=== PATIENT | female | born 1970 | race Caucasian/White ===

== ENCOUNTER 2023-03-10 05:44 | Observation (INO) | payer BC ==
[2023-03-03 16:30] LABS: ALBUMIN 3.6 G/DL (3.4-5.0); ALBUMIN/GLOBULIN RATIO 0.8 (1.1-1.5); ALKALINE PHOSPHATASE 140 IU/L (46-116); BLOOD UREA NITROGEN 12 MG/DL (7-18); BUN/CREATININE RATIO 14.8 (10.0-20.0); CALCIUM 8.6 MG/DL (8.5-10.1); CHLORIDE 101 MMOL/L (99-107); CREATININE 0.81 MG/DL (0.40-0.90); PRE OP ALT 25 U/L (30-65); PRE OP ANION GAP 4 (8-16); PRE OP AST 22 U/L (10-37); PRE OP BILIRUB, TOTAL 0.5 MG/DL (0.0-1.0); PRE OP GLUCOSE 98 MG/DL (70-104); PRE OP POTASSIUM 3.8 MMOL/L (3.4-5.1); PRE OP SODIUM 135 MMOL/L (135-145); TOTAL CARBON DIOXIDE 29.7 MMOL/L (24-32); TOTAL PROTEIN 7.9 G/DL (6.4-8.2); eGFR 74 ML/MIN
[2023-03-03 16:31] LABS: MEAN PLATELET VOLUME 8.9 FL (7.4-10.4)
[2023-03-03 16:34] LABS: BASOPHILS # (AUTO) 0.1 X10'3 (0-0.2); BASOPHILS % (AUTO) 0.9 % (0-1); EOSINOPHILS % (AUTO) 0.7 % (0-6); LYMPHOCYTES # (AUTO) 1.7 X10'3 (1.1-4.8); LYMPHOCYTES % (AUTO) 25.4 % (21-51); MEAN CORPUSCULAR HEMOGLOBIN 29.5 PG (27.0-31.0); MEAN CORPUSCULAR HGB CONC 33.5 g/dL (33.0-36.5); MONOCYTES # (AUTO) 0.7 X10'3 (0-0.9); MONOCYTES % (AUTO) 9.9 % (2-12); NEUTROPHILS # (AUTO) 4.3 X10'3 (1.8-7.7); NEUTROPHILS % (AUTO) 63.1 % (42-75); PRE OP HEMATOCRIT 39.9 % (35.0-45.0); PRE OP HEMOGLOBIN 13.3 g/dL (12.0-16.0); PRE OP PLATELET COUNT 231 X10'3 (140-440); PRE OP WHITE BLOOD COUNT 6.9 10'3 (4.8-10.8); RED BLOOD COUNT 4.53 X10'6 (4.20-5.60); RED CELL DISTRIBUTION WIDTH 13.8 % (11.5-14.5)
[~2023-03-10] VITALS: Ht 170.2 cm; Wt 100.0 kg
[2023-03-10] VITALS (28 sets, daily range): BP systolic 106–139; BP diastolic 59–92; PULSE 77–99; RESP 6–18; TEMP 97.4–98.5; O2SAT 93–100
[~2023-03-10 05:44] MED LIST: ASCO100T12 PO; CETI10CA19 PO; CHOL400T58 PO; MULT-969 PO; VIT1CAPS; cefazolin 2gm/D5W 100mL 100 ML IV ONE; famotidine 20mg tablet PO ONE; ringers solution, lacted 1,000 ML IV SCH
[2023-03-10] MEDS ORDERED: BUPIVAcaine/PF 2.5mg/ml (0.25%) 10ml vial ONE ×2 (06:39→07:10)
[2023-03-10] MEDS ORDERED: methylene blue (5mg/ml) 50mg/10ml ampul IV ONE (06:39)
[2023-03-10] MEDS ORDERED: BUPIVACAINE liposomal/PF 13.3 MG/ML vial IM ONE ×3 (06:40→08:23)
[2023-03-10] MEDS ORDERED: fentaNYL/PF 50MCG/1 ML 2ML syringe ONE ×2 (07:12→08:08)
[2023-03-10] MEDS ORDERED: midazolam 1 mg/ML 2ml injection ONE (07:13)
[2023-03-10] MEDS ORDERED: sevoflurane 250ml liquid IH ONE (07:35)
[2023-03-10] MEDS ORDERED: ondansetron/PF 4mg/2ml inj IV PRN ×2 (08:05→10:15)
[2023-03-10] MEDS ORDERED: meperidine/PF 25mg/ml syringe IV PRN ×2 (08:05)
[2023-03-10] MEDS ORDERED: morphine 2 MG/ML inj. syringe IV PRN ×2 (08:05→10:15)
[2023-03-10] MEDS ORDERED: morphine 4 MG/ML inj SYRINge IV PRN (08:05)
[2023-03-10] MEDS ORDERED: ringers solution, lacted 1,000 ML IV SCH (08:05)
[2023-03-10] MEDS ORDERED: proCHLORperazine 10 MG/2 ml inj IV PRN (08:05)
[2023-03-10] MEDS ORDERED: ondansetron/PF 4mg/2ml inj ONE (09:30)
[2023-03-10] MEDS ORDERED: propofol inj 20 ML IV ONE (09:30)
[2023-03-10] MEDS ORDERED: dexamethasone sod phosphate 4mg/ml inj. ONE (09:30)
[2023-03-10] MEDS ORDERED: acetaminophen 1,000mg/100ml IV 100 ML IV ONE (09:30)
[2023-03-10] MEDS: HYDROcodone/acetaminophen 5mg/325mg tablet PO PRN ×2 (11:02→20:24)
[2023-03-10] MEDS: meperidine/PF 25mg/ml syringe IV PRN ×2 (11:03→11:17)
[2023-03-10] MEDS: ceFAZolin 1GM/D5W- ADD-VANTAGE 50 ML IV SCH (17:01)
[2023-03-10] MEDS: ringers solution, lacted 1,000 ML IV SCH ×2 (20:20→23:53)
[2023-03-11] MEDS: ceFAZolin 1GM/D5W- ADD-VANTAGE 50 ML IV SCH ×2 (00:01→08:09)
[2023-03-11 02:00] VITALS: BP 137/80; PULSE 88; RESP 16; TEMP 97.8; O2SAT 99
[2023-03-11] MEDS: ringers solution, lacted 1,000 ML IV SCH (02:15)
[2023-03-11 07:04] VITALS: BP 130/70; PULSE 84; RESP 16; TEMP 97.6; O2SAT 100
== END 2023-03-11 11:00 | disposition home or self-care (01) ==
LOC: PAS 05:44 → PACU 10:32 → ORTHO 4S 12:40
PROVIDERS: ADMIT Surgery; ATTEND Surgery
DX: C50.912 Malignant neoplasm of unspecified site of left female breast (principal); Z17.0 Estrogen receptor positive status [ER+]; Z90.710 Acquired absence of both cervix and uterus; Z79.899 Other long term (current) drug therapy
CPT/HCPCS: 19303; 36415; 38525; 80053; 82948; 85025; 86885; 86900; 86901; 93005; 96365; 96366; 96375; C9290; G0378; J0131; J0690; J1100; J2175; J2250; J2405; J2704; J3010; J3490; J7120; Q9968; A4215; A4618; A6253; A6449; A7000